=== PATIENT | female | born 1945 | race Caucasian/White ===

== ENCOUNTER 2016-08-11 22:38 | Inpatient (IN) | payer MEDICARE, MEDICAID ==
[~2016-08-11] VITALS: Ht 172.7 cm; Wt 56.3 kg
[~2016-08-11 22:38] MED LIST: ACET1CAP18 PO; ALBUAER3 INH; AMLO5TAB2 PO; ATEN100T PO; BENA25TA3 PO; BOOSLIQ PO; CELE20TA PO; COUM4TAB PO; COZA100T PO; DENO60P SQ; FLUT1SPR9 EACH NARE; HYDR-3111 PO; LIPI40TA PO
[2016-08-11 22:41] VITALS: BP 150/81; PULSE 64; RESP 20; TEMP 98.5; O2SAT 94
--- NOTE | 2016-08-11 22:50 | PD ---
HPI Chief Complaint: trauma transfer Time Seen by Provider: 22:42 Travel History International Travel<30 days: No Contact w/Intl Traveler<30days: No Traveled to known affect area: No History of Present Illness HPI 70-year-old female transferred to our facility and accepted by our trauma surgeon Dr. Brooke. Patient had a mechanical fall earlier today and she sustained a right clavicle fracture as well as. Right-sided rib fractures with small hydropneumothorax according to CT chest reading accompanied by the patient. Patient is on Coumadin for factor V Leiden deficiency and Jerardo are at the other facility was 1.9. Patient is complaining of right clavicle/shoulder pain. No dyspnea. PFSH Social History Tobacco Use: No Allergies-Medications (Allergen,Severity, Reaction): Coded Allergies: Penicillin (Verified Allergy, Intermediate, Hives, 08/11/16) Sulfa (Verified Allergy, Intermediate, Hives, 08/11/16) Reported Meds & Prescriptions Reported Meds & Active Scripts Active Celexa (Citalopram Hydrobromide) 20 Mg Tab 20 Mg PO DAILY Cozaar (Losartan Potassium) 100 Mg Tab 100 Mg PO DAILY Lipitor (Atorvastatin Calcium) 40 Mg Tab 40 Mg PO HS Atenolol 100 Mg Tab 100 Mg PO DAILY Amlodipine (Amlodipine Besylate) 5 Mg Tab 5 Mg PO DAILY Reported Prolia Inj (Denosumab) 60 Mg/Ml Inj 60 Mg SQ Q180D Benadryl Allergy (Diphenhydramine HCl) 25 Mg Tab 25 Mg PO PRN PRN Tylenol (Acetaminophen) 325 Mg Cap 325 Mg PO PRN PRN Flonase Allergy Relief Children Nasal [place] (Fluticasone Nasal [place]) 50 Mcg/ Act [place] 2 [place] EACH NARE DAILY 50 mcg/spray Coumadin (Warfarin) 4 Mg Tab 4 Mg PO DAILY Proair Hfa 8.5 GM Inh (Albuterol Sulfate) 90 Mcg/Act Aer 2 Puff INH Q6H PRN 108 mcg/actuation Boost High Protein (Nutritional Supplements) 1 Liq Liq 1 Can PO TID Vicodin (Hydrocodone-Acetaminophen) 5-300 Mg Tab 1 Tab PO Q6H PRN Review of Systems Except as stated in HPI: all other systems reviewed are Neg Physical Exam Narrative GENERAL: Well-developed, thin, elderly appearing female, awake, alert, no acute distress. SKIN: Focused skin assessment warm/dry. HEAD: Atraumatic. Normocephalic. EYES: Pupils equal and round. No scleral icterus. No injection or drainage. ENT: Mucous membranes pink and moist. NECK: Trachea midline. No JVD. CARDIOVASCULAR: Regular rate and rhythm. No murmur appreciated. RESPIRATORY: No accessory muscle use. Clear to auscultation. GASTROINTESTINAL: Abdomen soft, non-tender, nondistended. Hepatic and splenic margins not palpable. MUSCULOSKELETAL: Right clavicle was step-off and diffuse tenderness. Right arm in a sling. The respiratory joints and extremities are without deformity, without tenderness, with normal range of motion. There is right chest wall tenderness without crepitus, without step-off, without paradoxical chest wall movement. NEUROLOGICAL: Awake and alert. No obvious cranial nerve deficits. Motor grossly within normal limits. Normal speech. PSYCHIATRIC: Appropriate mood and affect; insight and judgment normal. Data Data Last Documented VS Vital Signs Date Time Temp Pulse Resp B/P Pulse Ox O2 Delivery O2 Flow Rate FiO2 08/11/16 22:41 98.5 64 20 150/81 94 Orders Morphine Inj (Morphine Inj) (08/11/16 23:00) Admit Order (Ed Use Only) (08/11/16 22:50) MDM Medical Decision Making Medical Screen Exam Complete: Yes Emergency Medical Condition: Yes Differential Diagnosis Rib fractures, hemopneumothorax, clavicle fracture Narrative Course Patient's O2 saturation is 91% on room air. She is in no respiratory distress. Rest of her vital signs are within normal limits. After the patient arrived to the emergency Department, case discussed with accepting trauma surgeon Dr. Brooke who will admit the patient to his service to the ICU. Diagnosis Primary Impression: Fall Qualified Code: W19.XXXD - Fall, subsequent encounter Additional Impressions: Rib fractures Qualified Code: S22.41XD - Closed fracture of multiple ribs of right side with routine healing, subsequent encounter Clavicle fracture Qualified Code: S42.001D - Closed nondisplaced fracture of right clavicle with routine healing, unspecified part of clavicle, subsequent encounter Hemopneumothorax Admitting Information Admitting Physician Requests: Admit Michael Bowman MD August 11, 2016 22:50
[2016-08-11] MEDS ORDERED: MORPHINE SULFATE 4 MG/ML INJ IV PUSH ONE (23:00)
[2016-08-11 23:54] VITALS: BP 149/84; PULSE 63; RESP 22; O2SAT 96
[2016-08-12] VITALS (12 sets, daily range): BP systolic 90–173; BP diastolic 50–92; PULSE 56–72; RESP 14–25; TEMP 96.6–98.3; O2SAT 93–97
[2016-08-12] MEDS ORDERED: diphenhydrAMINE HCL 50 MG/ML VIAL IV PUSH ONE
[2016-08-12] MEDS: MORPHINE SULFATE 4 MG/ML INJ IV PUSH PRN ×2 (03:13→04:21)
[2016-08-12] MEDS ORDERED: SODIUM CHLORIDE 0.9% FLUSH 10 ML FLUSH IV FLUSH PRN (04:30)
[2016-08-12] MEDS ORDERED: CHLORHEXIDINE GLUCONATE 2 % 1 PACK (2 CLOTHS) TOP PRN (04:30)
[2016-08-12] MEDS ORDERED: ONDANSETRON HCL 4 MG/2 ML VIAL IV PRN (04:30)
[2016-08-12] MEDS ORDERED: MISCELLANEOUS NURSING INFORMATION XX SCH (04:30)
[2016-08-12] MEDS ORDERED: HYDROmorphone HCL PF 1 MG/ML VIAL IV PUSH PRN (04:45)
[2016-08-12] MEDS ORDERED: IOHEXOL 350 MG/ML 10 ML VIAL (for RAD DIAG) IV ONE (04:57)
--- NOTE | 2016-08-12 04:58 | HHI.HP ---
History of Present Illness Primary Care Physician Anca Licea MD Admission Diagnosis fall, rib fractures, hemopneumothorax, clavicle fracture Diagnoses: History of Present Illness 70 y.o female transfer mechanical fall yesterday-transfer from with right clavicle fx,2 rib fx right,first rib fx left.At time of my exam,HD normal, moving all 4 extremities,c/o mid thoracic sharp pain-spo2 98 percent with 3l o2. Review of Systems Constitutional: DENIES: Diaphoretic episodes, Fatigue, Fever, Weight gain, Weight loss, Chills, Dizziness, Change in appetite, Night Sweats Endocrine: DENIES: Abnorml menstrual pattern, Heat/cold intolerance, Polydipsia , Polyuria, Polyphagia Eyes: DENIES: Blurred vision, Diplopia, Eye inflammation, Eye pain, Vision loss , Photosensitivity, Double Vision Ears, nose, mouth, throat: DENIES: Tinnitus, Hearing loss, Vertigo, Nasal discharge, Oral lesions, Throat pain, Hoarseness, Ear Pain, Running Nose, Epistaxis, Sinus Pain, Toothache, Odynophagia Respiratory: DENIES: Apneas, Cough, Snoring, Wheezing, Hemoptysis, Sputum production, Shortness of breath Cardiovascular: DENIES: Chest pain, Palpitations, Syncope, Dyspnea on Exertion , PND, Lower Extremity Edema, Orthopnea, Claudication Gastrointestinal: DENIES: Abdominal pain, Black stools, Bloody stools, Constipation, Diarrhea, Nausea, Vomiting, Difficulty Swallowing, Anorexia Genitourinary: DENIES: Abnormal vaginal bleeding, Dysmenorrhea, Dyspareunia, Sexual dysfunction, Urinary frequency, Urinary incontinence, Urgency, Hematuria , Dysuria, Nocturia, Vaginal discharge Musculoskeletal: DENIES: Joint pain, Muscle aches, Stiffness, Joint Swelling, Back pain, Neck pain Integumentary: DENIES: Abnormal pigmentation, Pruritus, Rash, Nail changes, Breast masses, Breast skin changes, Nipple discharge Hematologic/lymphatic: DENIES: Bruising, Lymphadenopathy Immunologic/allergic: DENIES: Eczema, Urticaria Neurologic: DENIES: Abnormal gait, Headache, Localized weakness, Paresthesias, Seizures, Speech Problems, Tremor, Poor Balance Psychiatric: DENIES: Anxiety, Confusion, Mood changes, Depression, Hallucinations, Agitation, Suicidal Ideation, Homicidal Ideation, Delusions Past Family Social History Allergies: Coded Allergies: Penicillin (Verified Allergy, Intermediate, Hives, 08/11/16) Sulfa (Verified Allergy, Intermediate, Hives, 08/11/16) Past Medical History factor 5 leiden Past Surgical History none Reported Medications Current Medications Medications (Trade) Dose Ordered Sig/Christofer Route Start Time Stop Time Status Last Admin Morphine Sulfate 2 mg 2 mg Q1H PRN IV PUSH 08/12/16 03:15 08/12/16 04:21 (NS 1000 ml Inj) 1,000 ml @ 42 mls/hr [id number] IV 08/12/16 04:29 (NS Flush) 2 ml UNSCH PRN IV FLUSH 08/12/16 04:30 (NS Flush) 2 ml BID IV FLUSH 08/12/16 09:00 (Zofran Inj) 4 mg Q6H PRN IV 08/12/16 04:30 (Lactulose Liq) 30 ml DAILY PO 08/12/16 09:00 Miscellaneous Information 1 Q361D XX 08/12/16 04:30 (Chlorhexidine 2% Cloth) 3 pack Taper DAILY@04 TOP 08/13/16 04:00 08/09/17 03:59 (Chlorhexidine 2% Cloth) 3 pack UNSCH PRN TOP 08/12/16 04:30 Family History none Social History living with family,no etoh Physical Exam Vital Signs Vital Signs Date Time Temp Pulse Resp B/P Pulse Ox O2 Delivery O2 Flow Rate FiO2 08/12/16 00:58 66 20 147/85 95 Nasal Cannula 3 08/11/16 23:54 63 22 149/84 96 Nasal Cannula 3 08/11/16 22:41 98.5 64 20 150/81 94 Physical Exam GENERAL: This is a well-nourished, well-developed patient, in no apparent distress. SKIN: No rashes, ecchymoses or lesions. Cool and dry. HEAD: Atraumatic. Normocephalic. No temporal or scalp tenderness. EYES: Pupils equal round and reactive. Extraocular motions intact. No scleral icterus. No injection or drainage. ENT: Nose without bleeding, purulent drainage or septal hematoma. Throat without erythema, tonsillar hypertrophy or exudate. Uvula midline. Airway patent. NECK: Trachea midline. No JVD or lymphadenopathy. Supple, nontender, no meningeal signs. CARDIOVASCULAR: Regular rate and rhythm without murmurs, gallops, or rubs. RESPIRATORY: Clear to auscultation. Breath sounds equal bilaterally. No wheezes , rales, or rhonchi. GASTROINTESTINAL: Abdomen soft, non-tender, nondistended. No hepato-splenomegaly , or palpable masses. No guarding. MUSCULOSKELETAL: Extremities without clubbing, cyanosis, or edema.right UE sling NEUROLOGICAL: Awake and alert. Cranial nerves II through XII intact. Motor and sensory grossly within normal limits. Five out of 5 muscle strength in all muscle groups. Normal speech. Assessment and Plan Assessment and Plan right clavicle fx left 1st rib fx right 5th 6 th rib fx ? luca will obtain CT chest, AP as patient had only CT TL spine admit to ICU IS,pulmonary toilet pain control ortho consult Lyssa Brooke MD August 12, 2016 04:58
--- NOTE | 2016-08-12 05:07 | RADRPT ---
EXAM DATE/TIME: 08/12/2016 04:53 [facility] COMPARISON: No previous studies available for comparison. INDICATIONS : Trauma, fall. IV CONTRAST: 100 cc Omnipaque 350 (iohexol) IV ; Cumulative dose for multiple exams. RADIATION DOSE: 3.43 CTDIvol (mGy) ; Combined studies - Thorax/Abdomen/Pelvis MEDICAL HISTORY : Non-responsive. SURGICAL HISTORY : Non-responsive. ENCOUNTER: Initial ACUITY: 1 day PAIN SCALE: Non-responsive LOCATION: chest TECHNIQUE: Volumetric scanning of the chest was performed. Using automated exposure control and adjustment of t he mA and/or kV according to patient size, radiation dose was kept as low as reasonably achievable to obtain optimal diagnostic quality images. FINDINGS: LUNGS: Small hydropneumothorax on the right. Left lung is clear, with exception of left basilar atelectasis. PLEURA: There is no pleural thickening or pleural effusion. MEDIASTINUM: The heart and great vessels demonstrate no acute abnormality. There is no mediastinal or hilar lymph adenopathy. Coronary artery calcifications. AXILLAE: Within normal limits. No lymphadenopathy. SKELETAL: Right-sided rib fractures including the right fifth and sixth ribs. MISCELLANEOUS: The visualized upper abdominal organs demonstrate no acute abnormality. CONCLUSION: 1. Small hydropneumothorax on the right. 2. Right fifth and sixth rib fractures. Malick Calhoun MD on August 12, 2016 at 5:03 Board Certified Radiologist. This report was verified electronically.
--- NOTE | 2016-08-12 05:11 | RADRPT ---
EXAM DATE/TIME: 08/12/2016 04:51 [facility] COMPARISON: No previous studies available for comparison. INDICATIONS : Trauma, fall. IV CONTRAST: 100 cc Omnipaque 350 (iohexol) IV ; Cumulative dose for multiple exams. ORAL CONTRAST: No oral contrast ingested. RADIATION DOSE: 3.43 CTDIvol (mGy) ; Combined studies - Thorax/Abdomen/Pelvis MEDICAL HISTORY : Non-responsive. SURGICAL HISTORY : Non-responsive. ENCOUNTER: Initial ACUITY: 1 day PAIN SCALE: Non-responsive LOCATION: abdomen TECHNIQUE: Volumetric scanning of the abdomen and pelvis was performed. Using automated exposure control and ad justment of the mA and/or kV according to patient size, radiation dose was kept as low as reasonably achievable to obtain optimal diagnostic quality images. FINDINGS: LOWER LUNGS: The visualized lower lungs are clear. LIVER: Homogeneous density without lesion. There is no dilation of the biliary tree. No calcified gallston es. SPLEEN: Normal size without lesion. PANCREAS: Within normal limits. KIDNEYS: Normal in size and shape. There is no mass or hydronephrosis. Nonobstructing 6 mm lower pole calculu s on the right. ADRENAL GLANDS: Within normal limits. VASCULAR: There is no aortic aneurysm. Atherosclerotic changes. BOWEL/MESENTERY: Diverticulosis without diverticulitis. There is no free intraperitoneal air or fluid. ABDOMINAL WALL: Within normal limits. RETROPERITONEUM: There is no lymphadenopathy. BLADDER: No wall thickening or mass. Residual contrast within the bladder. A Woodson catheter present. REPRODUCTIVE: Within normal limits. INGUINAL: There is no lymphadenopathy or hernia. MUSCULOSKELETAL: 3 screws traverse the right hip CONCLUSION: 1. No abdominal visceral injury. 2. Small hydropneumothorax on the right. 3. Diverticulosis without diverticulitis. Malick Calhoun MD on August 12, 2016 at 5:06 Board Certified Radiologist. This report was verified electronically.
[2016-08-12] MEDS: SODIUM CHLOR 0.9% 1000 ML INJ 1,000 ML IV SCH (05:45)
--- NOTE | 2016-08-12 07:50 | PD.CONS ---
cc: Lanie Romero fall, possible clavicle fracture, multiple rib fractures (Lanie Romero) HPI Service Orthopedic Surgeons Consult Requested By ER Staff Reason for Consult right clavicle / rib fractures Primary Care Physician Anca Licea MD Admission Diagnosis fall, rib fractures, hemopneumothorax, clavicle fracture Diagnoses: (1) Fall Diagnosis: Principal (2) Clavicle fracture Diagnosis: Principal (3) Rib fractures (4) Osteoporosis (5) Osteoarthritis, knee (6) Hemopneumothorax Chief Complaint: fall, right clavicle and rib fractures (Lanie Romero) History of Present Illness 70 year old female admits to falling out of bed late last night. She admits she does not remember the event and 'blacked out.' Patient initially presented to [facility] and was later transferred to [facility] for trauma care. Per notation and report from [facility] she sustained a right clavicle fracture with multiple rib fractures. Although CT of chest does not demonstrate a clavicle fracture. X-rays have not been taken at this time. Orthopedic consultation was requested for possible clavicle fracture. She admits to prior orthopedic problems including severe right knee osteoarthritis. She admits to ambulating with a cane at home. She lives at home with her family. No previous injury to her right upper extremity. No other musculoskeletal complaints at this time. (Lanie Romero) Review of Systems well outlined in medical record (Lanie Romero) Past Family Social History Past Medical History factor 5 Leiden, right knee OA Past Surgical History none reported (Lanie Romero) Allergies: Coded Allergies: Penicillin (Verified Allergy, Intermediate, Hives, 08/11/16) Sulfa (Verified Allergy, Intermediate, Hives, 08/11/16) Active Ordered Medications Current Medications Medications (Trade) Dose Ordered Sig/Christofer Route Start Time Stop Time Status Last Admin Morphine Sulfate 2 mg 2 mg Q1H PRN IV PUSH 08/12/16 03:15 08/12/16 04:21 (NS 1000 ml Inj) 1,000 ml @ 42 mls/hr [id number] IV 08/12/16 04:29 08/12/16 05:45 (NS Flush) 2 ml UNSCH PRN IV FLUSH 08/12/16 04:30 (NS Flush) 2 ml BID IV FLUSH 08/12/16 09:00 (Zofran Inj) 4 mg Q6H PRN IV 08/12/16 04:30 (Lactulose Liq) 30 ml DAILY PO 08/12/16 09:00 Miscellaneous Information 1 Q361D XX 08/12/16 04:30 (Chlorhexidine 2% Cloth) 3 pack Taper DAILY@04 TOP 08/13/16 04:00 08/09/17 03:59 (Chlorhexidine 2% Cloth) 3 pack UNSCH PRN TOP 08/12/16 04:30 (Dilaudid Pf Inj) 0.2 mg Q4H PRN IV PUSH 08/12/16 04:45 (Dilaudid Pf Inj) 0.5 mg Q4H PRN IV PUSH 08/12/16 04:45 (Lidoderm 5% Patch.12 Hr) 1 patch DAILY T-DERMAL 08/12/16 09:00 Miscellaneous Information 1 HS T-DERMAL 08/12/16 21:00 Reported Meds & Active Scripts Active Celexa (Citalopram Hydrobromide) 20 Mg Tab 20 Mg PO DAILY Cozaar (Losartan Potassium) 100 Mg Tab 100 Mg PO DAILY Lipitor (Atorvastatin Calcium) 40 Mg Tab 40 Mg PO HS Atenolol 100 Mg Tab 100 Mg PO DAILY Amlodipine (Amlodipine Besylate) 5 Mg Tab 5 Mg PO DAILY Reported Prolia Inj (Denosumab) 60 Mg/Ml Inj 60 Mg SQ Q180D Benadryl Allergy (Diphenhydramine HCl) 25 Mg Tab 25 Mg PO PRN PRN Tylenol (Acetaminophen) 325 Mg Cap 325 Mg PO PRN PRN Flonase Allergy Relief Children Nasal [place] (Fluticasone Nasal [place]) 50 Mcg/ Act [place] 2 [place] EACH NARE DAILY 50 mcg/spray Coumadin (Warfarin) 4 Mg Tab 4 Mg PO DAILY Proair Hfa 8.5 GM Inh (Albuterol Sulfate) 90 Mcg/Act Aer 2 Puff INH Q6H PRN 108 mcg/actuation Boost High Protein (Nutritional Supplements) 1 Liq Liq 1 Can PO TID Vicodin (Hydrocodone-Acetaminophen) 5-300 Mg Tab 1 Tab PO Q6H PRN Family History noncontributory Social History lives at home with family, no etoh or drug use (Lanie Romero) Physical Exam Vital Signs Vital Signs Date Time Temp Pulse Resp B/P Pulse Ox O2 Delivery O2 Flow Rate FiO2 08/12/16 06:00 72 08/12/16 04:00 70 08/12/16 02:00 64 08/12/16 01:30 96 Nasal Cannula 3.00 08/12/16 00:58 66 20 147/85 95 Nasal Cannula 3 08/11/16 23:54 63 22 149/84 96 Nasal Cannula 3 08/11/16 22:41 98.5 64 20 150/81 94 Physical Exam RUE: Tender to palpation over right mid-shaft clavicle and right olecranon. No specific pain over shoulder region. Freely able to flex and extend elbow without pain. Freely able to move wrist and digits. Good cap refill. 2+ radial pulse. Arm in sling at this time. No other musculoskeletal complaints at this time. (Lanie Romero ) Imaging Last Impressions Elbow X-Ray 08/12/16 0000 Signed Impressions: Service Date/Time: Friday, August 12, 2016 09:37 - CONCLUSION: Unremarkable limited examination of the right elbow. Leonides Vogt MD Clavicle X-Ray 08/12/16 0000 Signed Impressions: Service Date/Time: Friday, August 12, 2016 09:31 - CONCLUSION: Rib fractures and right clavicle fracture. High riding humeral head. Leonides Vogt MD Chest CT 08/11/16 0000 Signed Impressions: Service Date/Time: Friday, August 12, 2016 04:53 - CONCLUSION: 1. Small hydropneumothorax on the right. 2. Right fifth and sixth rib fractures. Malick Calhoun MD Abdomen/Pelvis CT 08/11/16 0000 Signed Impressions: Service Date/Time: Friday, August 12, 2016 04:51 - CONCLUSION: 1. No abdominal visceral injury. 2. Small hydropneumothorax on the right. 3. Diverticulosis without diverticulitis. Malick Calhoun MD Last Impressions Chest CT 08/11/16 0000 Signed Impressions: Service Date/Time: Friday, August 12, 2016 04:53 - CONCLUSION: 1. Small hydropneumothorax on the right. 2. Right fifth and sixth rib fractures. Malick Calhoun MD Abdomen/Pelvis CT 08/11/16 0000 Signed Impressions: Service Date/Time: Friday, August 12, 2016 04:51 - CONCLUSION: 1. No abdominal visceral injury. 2. Small hydropneumothorax on the right. 3. Diverticulosis without diverticulitis. Malick Calhoun MD Course well outlined in medical records (Lanie Romero) Assessment & Plan Problem List: (1) Fall (2) Clavicle fracture (3) Rib fractures (4) Factor V Leiden (5) Osteoporosis (6) Osteoarthritis, knee Assessment and Plan The findings were discussed with the patient. Dr Dylan Chavis has reviewed images and details of this case. Attempt was made to review [facility] CD with possible images - which was unsuccessful. Further radiographs have been ordered, including right clavicle and right elbow. Plan will be further addressed upon review of images. Rib fractures are non-surgical at this time. Continue IS use. Orthopedics will follow. Update: Further imaging was reviewed demonstrating a right closed mid-shaft mildly displaced clavicle fracture. No fractures or dislocations noted on right elbow upon review of images. Recommendations are given for non-operative management at this time. Non weight bearing right upper extremity. No physical therapy for right shoulder/clavicle at this time. Patient is to remain in sling for comfort. Continue pain control. Recommended orthopedic follow up in 7-10 days. Further displacement of the fracture site may require fixation. The possibility of future surgical treatment was discussed with the patient in detail, the patient acknowledges full understanding. Orthopedic clear for discharge at this time. Appreciate orthopedic involvement in patient's care. ( Lanie Romero) Assessment and Plan The exam, history and medical decision making were completed with the assistance of a mid-level provider. I reviewed and agree with the findings presented. (Dylan Chavis MD) Lanie Romero August 12, 2016 07:50 Dylan Chavis MD August 16, 2016 15:44
[2016-08-12] MEDS: LACTULOSE SYRUP 20 GM/30 ML CUP PO SCH (08:18)
[2016-08-12] MEDS: LIDOCAINE HCL 5% PATCH T-DERMAL SCH (08:18)
[2016-08-12] MEDS: SODIUM CHLORIDE 0.9% FLUSH 10 ML FLUSH IV FLUSH SCH ×2 (08:18→21:00)
[2016-08-12] MEDS: FAMOTIDINE 20 MG TAB PO SCH ×2 (09:13→20:38)
--- NOTE | 2016-08-12 10:40 | RADRPT ---
EXAM DATE/TIME: 08/12/2016 09:31 [facility] COMPARISON: No previous studies available for comparison. INDICATIONS : Trauma MEDICAL HISTORY : Unknown SURGICAL HISTORY : Unknown ENCOUNTER: Subsequent ACUITY: 1 day PAIN SCORE: Non-responsive. LOCATION: Right clavicle FINDINGS: There is a mildly angulated mildly displaced mid shaft right clavicle fracture. The humeral head is h igh riding without evidence of fracture or obvious dislocation. Adjacent chest wall is notable for se veral mildly displaced right rib fractures, I believe at least the fifth and sixth ribs. CONCLUSION: Rib fractures and right clavicle fracture. High riding humeral head. Leonides Vogt MD on August 12, 2016 at 10:36 Board Certified Radiologist. This report was verified electronically.
--- NOTE | 2016-08-12 11:06 | RADRPT ---
EXAM DATE/TIME: 08/12/2016 09:37 [facility] COMPARISON: No previous studies available for comparison. INDICATIONS : Trauma MEDICAL HISTORY : Unknown SURGICAL HISTORY : Unknown ENCOUNTER: Subsequent ACUITY: 1 day PAIN SCORE: Non-responsive. LOCATION: Right Elbow FINDINGS: Two view examination of the right elbow demonstrates no soft tissue swelling, joint effusion, fractur e or dislocation. Bony mineralization is normal. CONCLUSION: Unremarkable limited examination of the right elbow. Leonides Vogt MD on August 12, 2016 at 11:03 Board Certified Radiologist. This report was verified electronically.
[2016-08-12] MEDS: HYDROmorphone HCL PF 1 MG/ML VIAL IV PUSH PRN ×2 (11:34→20:39)
[2016-08-12] MEDS ORDERED: ALBUTEROL SULFATE 90 MCG/ACT HFA 18 GM INHALER INH PRN (12:00)
[2016-08-12] MEDS: CITALOPRAM HYDROBROMIDE 20 MG TAB PO SCH (12:21)
[2016-08-12] MEDS: amLODIPine BESYLATE 5 MG TAB PO SCH (12:21)
[2016-08-12] MEDS: ACETAMINOPHEN 1000 MG/100 ML VIAL IV SCH ×2 (12:21→17:15)
[2016-08-12] MEDS: LOSARTAN 50 MG TAB PO SCH (12:21)
[2016-08-12] MEDS: ATENOLOL 100 MG TAB PO SCH (12:39)
--- NOTE | 2016-08-12 13:24 | HHI.CCPN ---
Subjective Brief History Unfortunate 70-year-old lady who sustained the right clavicle and right 5, 6 and 7 rib fracture and chest contusion with pulmonary contusion Patient was transferred to us from [facility] in for further care Patient is stable with good oxygen saturation and will be transferred to floor today Objective Vital Signs Date Time Temp Pulse Resp B/P Pulse Ox O2 Delivery O2 Flow Rate FiO2 08/12/16 12:09 14 08/12/16 12:01 98.3 70 173/92 94 08/12/16 10:04 Nasal Cannula 1.00 Imaging Last 24 hours Impressions Elbow X-Ray 08/12/16 0000 Signed Impressions: Service Date/Time: Friday, August 12, 2016 09:37 - CONCLUSION: Unremarkable limited examination of the right elbow. Leonides Vogt MD Clavicle X-Ray 08/12/16 0000 Signed Impressions: Service Date/Time: Friday, August 12, 2016 09:31 - CONCLUSION: Rib fractures and right clavicle fracture. High riding humeral head. MD Camila Ellington Slobodan MD August 12, 2016 13:24
[2016-08-12] MEDS: oxyCODONE/ACETAMINOPHEN 5 MG/325 MG TAB PO PRN ×2 (13:56→17:35)
[2016-08-12] MEDS: METHOCARBAMOL 500 MG TAB PO SCH ×2 (13:56→20:38)
[2016-08-12] MEDS: ATORVASTATIN 40 MG TAB PO SCH (20:38)
[2016-08-12] MEDS: REMOVE OLD PATCH T-DERMAL SCH (21:00)
[2016-08-13] VITALS (8 sets, daily range): BP systolic 92–134; BP diastolic 55–68; PULSE 51–68; RESP 17–20; TEMP 95.6–98.9; O2SAT 92–97
[2016-08-13] MEDS: ACETAMINOPHEN 1000 MG/100 ML VIAL IV SCH ×2 (00:43→05:32)
[2016-08-13] MEDS ORDERED: CHLORHEXIDINE GLUCONATE 2 % 1 PACK (2 CLOTHS) TOP SCH (04:00)
[2016-08-13] MEDS: oxyCODONE/ACETAMINOPHEN 5 MG/325 MG TAB PO PRN ×3 (04:16→21:56)
[2016-08-13] MEDS: SODIUM CHLOR 0.9% 1000 ML INJ 1,000 ML IV SCH ×2 (04:18→17:21)
[2016-08-13] MEDS: METHOCARBAMOL 500 MG TAB PO SCH ×3 (05:31→21:55)
[2016-08-13] MEDS: CITALOPRAM HYDROBROMIDE 20 MG TAB PO SCH (08:33)
[2016-08-13] MEDS: LOSARTAN 50 MG TAB PO SCH (08:33)
[2016-08-13] MEDS: FAMOTIDINE 20 MG TAB PO SCH ×2 (08:33→20:10)
[2016-08-13] MEDS: amLODIPine BESYLATE 5 MG TAB PO SCH (08:33)
[2016-08-13] MEDS: LACTULOSE SYRUP 20 GM/30 ML CUP PO SCH (08:33)
[2016-08-13] MEDS: ATENOLOL 100 MG TAB PO SCH (08:33)
[2016-08-13] MEDS: LIDOCAINE HCL 5% PATCH T-DERMAL SCH (08:34)
[2016-08-13] MEDS: SODIUM CHLORIDE 0.9% FLUSH 10 ML FLUSH IV FLUSH SCH ×2 (08:34→20:10)
--- NOTE | 2016-08-13 08:39 | RADRPT ---
EXAM DATE/TIME: 08/13/2016 07:56 [facility] COMPARISON: CT THORAX W CONTRAST, August 12, 2016, 4:53. INDICATIONS : Chest pain from trauma to chest yesterday. Small hydropneumothorax on right seen on CT as well as mul tiple right rib fractures. MEDICAL HISTORY : None. SURGICAL HISTORY : None. ENCOUNTER: Subsequent ACUITY: 1 day PAIN SCORE: 10/10 LOCATION: Bilateral chest FINDINGS: A single view of the chest demonstrates the lungs to be symmetrically aerated without evidence of mas s or consolidative infiltrate. There is slight blunting of the left lateral costophrenic angle. There is mild streaky opacity at the lung bases. The cardiomediastinal contours are unremarkable. Fracture s of the right fifth and sixth posterior lateral ribs are again noted. The small pneumothorax is not definitely visualized. There is overlying artifact an apparent skinfold. CONCLUSION: 1. Fractures of the right posterior lateral fifth and sixth ribs are again visualized. The known smal l pneumothorax seen on the thorac CT is not distinctly visualized. 2. Apparent scarring or atelectasis in the lung bases. Demetrio Andersen MD on August 13, 2016 at 8:35 Board Certified Radiologist. This report was verified electronically.
[2016-08-13] MEDS ORDERED: diphenhydrAMINE HCL 50 MG CAP PO PRN (09:45)
--- NOTE | 2016-08-13 10:00 | HHI.PR ---
Subjective Subjective Notes Refused labs this AM, agreeable now Complains of right knee and rib pain States she is constipated Objective Vitals/I&O Vital Signs Date Time Temp Pulse Resp B/P Pulse Ox O2 Delivery O2 Flow Rate FiO2 08/13/16 08:28 Nasal Cannula 2.00 08/13/16 08:00 95.6 51 17 92/59 96 Radiology Last Impressions Chest X-Ray 08/13/16 0000 Signed Impressions: Service Date/Time: Saturday, August 13, 2016 07:56 - CONCLUSION: 1. Fractures of the right posterior lateral fifth and sixth ribs are again visualized. The known small pneumothorax seen on the thorac CT is not distinctly visualized. 2. Apparent scarring or atelectasis in the lung bases. Demetrio Andersen MD Elbow X-Ray 08/12/16 0000 Signed Impressions: Service Date/Time: Friday, August 12, 2016 09:37 - CONCLUSION: Unremarkable limited examination of the right elbow. Leonides Vogt MD Clavicle X-Ray 08/12/16 0000 Signed Impressions: Service Date/Time: Friday, August 12, 2016 09:31 - CONCLUSION: Rib fractures and right clavicle fracture. High riding humeral head. Leonides Vogt MD Chest CT 08/11/16 0000 Signed Impressions: Service Date/Time: Friday, August 12, 2016 04:53 - CONCLUSION: 1. Small hydropneumothorax on the right. 2. Right fifth and sixth rib fractures. Malick Calhoun MD Abdomen/Pelvis CT 08/11/16 0000 Signed Impressions: Service Date/Time: Friday, August 12, 2016 04:51 - CONCLUSION: 1. No abdominal visceral injury. 2. Small hydropneumothorax on the right. 3. Diverticulosis without diverticulitis. Malick Calhoun MD Narrative Exam GENERAL: 70 year old elderly female lying in bed splinting chest with pillow. SKIN: Warm and dry. HEAD: Atraumatic. Normocephalic. ENT: No nasal bleeding or discharge. Mucous membranes pink and moist. NECK: Trachea midline. No JVD. CARDIOVASCULAR: Regular rate and rhythm. RESPIRATORY: No accessory muscle use. Lungs clear to auscultation. Breath sounds equal bilaterally. GASTROINTESTINAL: Abdomen soft, non-tender, nondistended. + BS. MUSCULOSKELETAL: Extremities without cyanosis, or edema. No obvious deformities. NEUROLOGICAL: Awake and alert. Normal speech. A/P Assessment and Plan INJURIES: Right clavicle fracture Right rib fractures (5,6) Small hemopneumothorax Aspiration PMHx: severe osteoarthritis right knee Diet: Regular, decreased appetite Pulmonary: IS, acapella. Encouraged patient use Pain: Percocet, Robaxin, IV Ofirmev, Lidoderm patch, Dilaudid IV. Tylenol. Activity: OOB, PT, OT evaluating- recommending rehab. (NWB RUE) IVF increased to NS @ 100 d/t hypotension. Home BP meds on hold. GI: Pepcid Bowel: Lactulose, Georgiana-colace. No BM yet. Dulcolax MI x1 today DVT: SCDs Discontinue Woodson catheter Awaiting lab results for today. -Right clavicle fracture sling- NWB RUE X-ray + for fx Ortho following -Right rib fractures, Small hemopneumothorax, Aspiration Pulmonary toileting: IS, acapella CXR today- No PTX, atelectasis in bilateral bases Pain control TCDB Increase activity Case management consulted to assist with discharge planning. Patient will likely need rehab vs SNF placement. Plan of care discussed with patient and ex- at bedside. The exam, history, and the medical decision-making described in the above note were completed with the assistance of the mid-level provider. I reviewed and agree with the findings presented. I attest that I had a [id number] encounter with the patient on the same day, and personally performed and documented my assessment and findings in the medical record. Vicky Bowie August 13, 2016 10:00 Cornelio Lind MD August 13, 2016 17:17
[2016-08-13] MEDS: diphenhydrAMINE HCL 25 MG CAP PO PRN ×2 (10:14→21:55)
[2016-08-13] MEDS ORDERED: ACETAMINOPHEN 325 MG TAB PO PRN (12:00)
[2016-08-13] MEDS ORDERED: BISACODYL 10 MG SUPP RECTAL ONE (12:30)
[2016-08-13 14:36] LABS: AUTOMATED NEUTROPHIL # 6.3 TH/MM3 (1.8-7.7); BASOPHIL % 0.3 % (0.0-2.0); EOSINOPHIL # 0.1 TH/MM3 (0-0.4); EOSINOPHIL % 1.4 % (0.0-4.0); HEMATOCRIT 34.7 % (35.0-46.0); HEMO FLAGS DIFF FINAL; LYMPH % 19.7 % (9.0-44.0); LYMPHOCYTE # 1.7 TH/MM3 (1.0-4.8); MEAN CELL VOLUME 86.9 FL (80.0-100.0); MEAN CORPUSCULAR HEMOGLOBIN 30.3 PG (27.0-34.0); MEAN CORPUSCULAR HGB CONC 34.9 % (32.0-36.0); MONO % 6.8 % (0.0-8.0); NEUT % 71.8 % (16.0-70.0); PLATELET COUNT 134 TH/MM3 (150-450); RED BLOOD COUNT 3.99 MIL/MM3 (4.00-5.30); RED CELL DISTRIBUTION WIDTH 16.1 % (11.6-17.2); WHITE BLOOD COUNT 8.8 TH/MM3 (4.0-11.0)
[2016-08-13 14:43] LABS: INTERNATIONAL NORMALIZED RATIO 1.7 RATIO
[2016-08-13 14:54] LABS: ALT (GPT) 18 U/L (10-53); ANION GAP 9 MEQ/L (5-15); AST (GOT) 19 U/L (15-37); BICARBONATE 26.4 MEQ/L (21.0-32.0); BLOOD UREA NITROGEN 17 MG/DL (7-18); CHLORIDE 105 MEQ/L (98-107); GLOMERULAR FILTRATION RATE 49 ML/MIN (>89); MAGNESIUM 1.8 MG/DL (1.5-2.5); POTASSIUM 3.2 MEQ/L (3.5-5.1); SODIUM (NA) 140 MEQ/L (136-145)
[2016-08-13 14:56] LABS: ALKALINE PHOSPHATASE 60 U/L (45-117); TOTAL BILIRUBIN ADULT 0.9 MG/DL (0.2-1.0)
[2016-08-13] MEDS: ATORVASTATIN 40 MG TAB PO SCH (20:10)
[2016-08-13] MEDS: DOCUSATE SODIUM 50 MG/SENNA 8.6 MG TAB PO SCH (20:10)
[2016-08-13] MEDS: REMOVE OLD PATCH T-DERMAL SCH (20:12)
[2016-08-14] VITALS (7 sets, daily range): BP systolic 116–169; BP diastolic 57–80; PULSE 6–75; RESP 16–20; TEMP 96.7–98.2; O2SAT 92–100
[2016-08-14] MEDS: METHOCARBAMOL 500 MG TAB PO SCH ×3 (04:51→22:45)
[2016-08-14] MEDS: oxyCODONE/ACETAMINOPHEN 5 MG/325 MG TAB PO PRN ×3 (04:51→15:53)
[2016-08-14 05:28] LABS: AUTOMATED NEUTROPHIL # 5.3 TH/MM3 (1.8-7.7); BASOPHIL % 0.2 % (0.0-2.0); EOSINOPHIL # 0.1 TH/MM3 (0-0.4); EOSINOPHIL % 1.3 % (0.0-4.0); HEMATOCRIT 40.7 % (35.0-46.0); HEMO FLAGS DIFF FINAL; LYMPH % 17.2 % (9.0-44.0); LYMPHOCYTE # 1.2 TH/MM3 (1.0-4.8); MEAN CELL VOLUME 86.3 FL (80.0-100.0); MEAN CORPUSCULAR HEMOGLOBIN 29.3 PG (27.0-34.0); MEAN CORPUSCULAR HGB CONC 33.9 % (32.0-36.0); MONO % 7.3 % (0.0-8.0); PLATELET COUNT 141 TH/MM3 (150-450); RED BLOOD COUNT 4.72 MIL/MM3 (4.00-5.30); RED CELL DISTRIBUTION WIDTH 15.6 % (11.6-17.2); WHITE BLOOD COUNT 7.2 TH/MM3 (4.0-11.0)
[2016-08-14 05:35] LABS: ALT (GPT) 19 U/L (10-53); ANION GAP 6 MEQ/L (5-15); AST (GOT) 19 U/L (15-37); BICARBONATE 29.2 MEQ/L (21.0-32.0); BLOOD UREA NITROGEN 9 MG/DL (7-18); CHLORIDE 108 MEQ/L (98-107); GLOMERULAR FILTRATION RATE 82 ML/MIN (>89); POTASSIUM 3.4 MEQ/L (3.5-5.1); SODIUM (NA) 143 MEQ/L (136-145)
[2016-08-14 05:38] LABS: ALKALINE PHOSPHATASE 66 U/L (45-117); TOTAL BILIRUBIN ADULT 1.2 MG/DL (0.2-1.0)
[2016-08-14] MEDS ORDERED: POTASSIUM CHLORIDE 25 MEQ EFFERVESCENT TAB PO ONE (07:15)
[2016-08-14] MEDS: amLODIPine BESYLATE 5 MG TAB PO SCH (09:00)
[2016-08-14] MEDS: FAMOTIDINE 20 MG TAB PO SCH ×2 (09:00→20:35)
[2016-08-14] MEDS: CITALOPRAM HYDROBROMIDE 20 MG TAB PO SCH (09:00)
[2016-08-14] MEDS: SODIUM CHLORIDE 0.9% FLUSH 10 ML FLUSH IV FLUSH SCH ×2 (09:00→19:53)
[2016-08-14] MEDS: LACTULOSE SYRUP 20 GM/30 ML CUP PO SCH (09:00)
[2016-08-14] MEDS: DOCUSATE SODIUM 50 MG/SENNA 8.6 MG TAB PO SCH ×2 (09:00→20:35)
[2016-08-14] MEDS: LIDOCAINE HCL 5% PATCH T-DERMAL SCH (09:01)
--- NOTE | 2016-08-14 12:14 | HHI.PR ---
Subjective Subjective Notes OOB with PT yesterday BP better today Complains of rib pain Objective Vitals/I&O Vital Signs Date Time Temp Pulse Resp B/P Pulse Ox O2 Delivery O2 Flow Rate FiO2 08/14/16 09:00 Nasal Cannula 3.00 08/14/16 08:00 97.2 59 18 128/66 96 Labs Laboratory Tests Test 08/13/16 08/14/16 14:07 04:44 White Blood Count 8.8 7.2 Red Blood Count 3.99 4.72 Hemoglobin 12.1 13.8 Hematocrit 34.7 40.7 Mean Corpuscular Volume 86.9 86.3 Mean Corpuscular Hemoglobin 30.3 29.3 Mean Corpuscular Hemoglobin 34.9 33.9 Concent Red Cell Distribution Width 16.1 15.6 Platelet Count 134 141 Mean Platelet Volume 8.7 8.7 Neutrophils (%) (Auto) 71.8 74.0 Lymphocytes (%) (Auto) 19.7 17.2 Monocytes (%) (Auto) 6.8 7.3 Eosinophils (%) (Auto) 1.4 1.3 Basophils (%) (Auto) 0.3 0.2 Neutrophils # (Auto) 6.3 5.3 Lymphocytes # (Auto) 1.7 1.2 Monocytes # (Auto) 0.6 0.5 Eosinophils # (Auto) 0.1 0.1 Basophils # (Auto) 0.0 0.0 CBC Comment DIFF FINAL DIFF FINAL Differential Comment Prothrombin Time 19.0 Prothromb Time International 1.7 Ratio Sodium Level 140 143 Potassium Level 3.2 3.4 Chloride Level 105 108 Carbon Dioxide Level 26.4 29.2 Anion Gap 9 6 Blood Urea Nitrogen 17 9 Creatinine 1.09 0.70 Estimat Glomerular Filtration 49 82 Rate Random Glucose 84 101 Calcium Level 7.9 8.7 Magnesium Level 1.8 Total Bilirubin 0.9 1.2 Aspartate Amino Transf 19 19 (AST/SGOT) Alanine Aminotransferase 18 19 (ALT/SGPT) Alkaline Phosphatase 60 66 Total Protein 5.6 6.4 Albumin 3.2 3.4 Radiology Last Impressions Chest X-Ray 08/13/16 0000 Signed Impressions: Service Date/Time: Saturday, August 13, 2016 07:56 - CONCLUSION: 1. Fractures of the right posterior lateral fifth and sixth ribs are again visualized. The known small pneumothorax seen on the thorac CT is not distinctly visualized. 2. Apparent scarring or atelectasis in the lung bases. Demetrio Andersen MD Elbow X-Ray 08/12/16 0000 Signed Impressions: Service Date/Time: Friday, August 12, 2016 09:37 - CONCLUSION: Unremarkable limited examination of the right elbow. Leonides Vogt MD Clavicle X-Ray 08/12/16 0000 Signed Impressions: Service Date/Time: Friday, August 12, 2016 09:31 - CONCLUSION: Rib fractures and right clavicle fracture. High riding humeral head. Leonides Vogt MD Chest CT 08/11/16 0000 Signed Impressions: Service Date/Time: Friday, August 12, 2016 04:53 - CONCLUSION: 1. Small hydropneumothorax on the right. 2. Right fifth and sixth rib fractures. Malick Calhoun MD Abdomen/Pelvis CT 08/11/16 0000 Signed Impressions: Service Date/Time: Friday, August 12, 2016 04:51 - CONCLUSION: 1. No abdominal visceral injury. 2. Small hydropneumothorax on the right. 3. Diverticulosis without diverticulitis. Malick Calhoun MD Narrative Exam GENERAL: 70 year old elderly female lying in bed splinting chest with pillow. SKIN: Warm and dry. HEAD: Atraumatic. Normocephalic. ENT: No nasal bleeding or discharge. Mucous membranes pink and moist. NECK: Trachea midline. No JVD. CARDIOVASCULAR: Regular rate and rhythm. RESPIRATORY: No accessory muscle use. Lungs clear and diminished to auscultation. Breath sounds equal bilaterally. GASTROINTESTINAL: Abdomen soft, non-tender, nondistended. + BS. MUSCULOSKELETAL: Extremities without cyanosis, or edema. No obvious deformities. NEUROLOGICAL: Awake and alert. Normal speech. A/P Assessment and Plan INJURIES: Right clavicle fracture Right rib fractures (5,6) Small hemopneumothorax Aspiration PMHx: severe osteoarthritis right knee Diet: Regular, decreased appetite added Enlive supplements Pulmonary: IS, acapella. Encouraged patient use Pain: Percocet, Robaxin, Lidoderm patch, Dilaudid IV. Tylenol. Activity: OOB, PT, OT evaluating- recommending rehab. (NWB RUE) GI: Pepcid Bowel: Lactulose, Georgiana-colace. LBM 08/14 DVT: SCDs. Started on Lovenox 1 mg/kg SQ BID. Home Coumadin dose to start tomorrow. -Hypotension Resolved DC IVF Continue to monitor to resume home BP meds -Right clavicle fracture sling- NWB RUE Non-operative management Ortho cleared for discharge, F/U in 7-10 days -Right rib fractures, Small hemopneumothorax, Aspiration Pulmonary toileting: IS, acapella Pain control TCDB Increase activity Case management consulted to assist with discharge planning. Patient agreeable to rehab. Plan for discharge to SNF in 1-2 days. Plan of care discussed with patient and RN at bedside. Vicky Bowie August 14, 2016 12:14
[2016-08-14] MEDS: ENOXAPARIN SODIUM 60 MG/0.6 ML SYRINGE SQ SCH (12:56)
[2016-08-14] MEDS: HYDROmorphone HCL PF 1 MG/ML VIAL IV PUSH PRN (19:48)
[2016-08-14] MEDS: ATORVASTATIN 40 MG TAB PO SCH (20:35)
[2016-08-14] MEDS: REMOVE OLD PATCH T-DERMAL SCH (20:39)
[2016-08-15 00:10] VITALS: BP 151/78; PULSE 73; RESP 17; TEMP 99.5; O2SAT 94
[2016-08-15] MEDS: ENOXAPARIN SODIUM 60 MG/0.6 ML SYRINGE SQ SCH ×2 (01:43→13:22)
[2016-08-15] MEDS: oxyCODONE/ACETAMINOPHEN 5 MG/325 MG TAB PO PRN ×3 (01:43→20:31)
[2016-08-15 04:15] VITALS: BP 117/65; PULSE 64; RESP 17; TEMP 96.9; O2SAT 94
[2016-08-15] MEDS: METHOCARBAMOL 500 MG TAB PO SCH ×3 (05:35→21:15)
[2016-08-15 05:51] LABS: AUTOMATED NEUTROPHIL # 5.3 TH/MM3 (1.8-7.7); BASOPHIL % 0.4 % (0.0-2.0); EOSINOPHIL # 0.1 TH/MM3 (0-0.4); EOSINOPHIL % 1.7 % (0.0-4.0); HEMATOCRIT 35.7 % (35.0-46.0); HEMO FLAGS DIFF FINAL; LYMPH % 25.2 % (9.0-44.0); LYMPHOCYTE # 2.1 TH/MM3 (1.0-4.8); MEAN CELL VOLUME 87.6 FL (80.0-100.0); MEAN CORPUSCULAR HEMOGLOBIN 29.7 PG (27.0-34.0); MONO % 8.5 % (0.0-8.0); NEUT % 64.2 % (16.0-70.0); PLATELET COUNT 158 TH/MM3 (150-450); RED BLOOD COUNT 4.08 MIL/MM3 (4.00-5.30); RED CELL DISTRIBUTION WIDTH 15.5 % (11.6-17.2); WHITE BLOOD COUNT 8.3 TH/MM3 (4.0-11.0)
--- NOTE | 2016-08-15 06:12 | RADRPT ---
EXAM DATE/TIME: 08/15/2016 05:09 [facility] COMPARISON: CHEST SINGLE AP, August 13, 2016, 7:56. INDICATIONS : Chest pain, evaluate for pneumothorax and rib fractures MEDICAL HISTORY : None. SURGICAL HISTORY : None. ENCOUNTER: Subsequent ACUITY: 2 days PAIN SCORE: 8/10 LOCATION: Bilateral chest FINDINGS: Again seen are right sided rib fractures and right clavicular fracture. No pneumothorax. Linear scarr ing within the bases bilaterally. This is stable. No effusions. Heart is normal in size. CONCLUSION: 1. Right-sided rib fractures and right clavicular fracture. 2. No pneumothorax. 3. Bibasilar scarring. Natanael Garcia Jr., MD on August 15, 2016 at 6:09 Board Certified Radiologist. This report was verified electronically.
[2016-08-15 06:20] LABS: ALKALINE PHOSPHATASE 67 U/L (45-117); ALT (GPT) 19 U/L (10-53); ANION GAP 7 MEQ/L (5-15); AST (GOT) 20 U/L (15-37); BLOOD UREA NITROGEN 14 MG/DL (7-18); CHLORIDE 105 MEQ/L (98-107); GLOMERULAR FILTRATION RATE 70 ML/MIN (>89); MAGNESIUM 1.9 MG/DL (1.5-2.5); POTASSIUM 4.4 MEQ/L (3.5-5.1); SODIUM (NA) 142 MEQ/L (136-145); TOTAL BILIRUBIN ADULT 1.3 MG/DL (0.2-1.0)
[2016-08-15 07:36] VITALS: BP 124/68; PULSE 64; RESP 17; TEMP 97.9; O2SAT 93
[2016-08-15] MEDS: DOCUSATE SODIUM 50 MG/SENNA 8.6 MG TAB PO SCH ×2 (09:46→20:26)
[2016-08-15] MEDS: amLODIPine BESYLATE 5 MG TAB PO SCH (09:46)
[2016-08-15] MEDS: CITALOPRAM HYDROBROMIDE 20 MG TAB PO SCH (09:47)
[2016-08-15] MEDS: FAMOTIDINE 20 MG TAB PO SCH ×2 (09:47→20:26)
[2016-08-15] MEDS: LIDOCAINE HCL 5% PATCH T-DERMAL SCH (09:49)
[2016-08-15] MEDS: LACTULOSE SYRUP 20 GM/30 ML CUP PO SCH (09:49)
[2016-08-15] MEDS: SODIUM CHLORIDE 0.9% FLUSH 10 ML FLUSH IV FLUSH SCH ×2 (09:51→20:28)
[2016-08-15] MEDS ORDERED: OXYC1TAB63 PO (11:07)
[2016-08-15 11:26] VITALS: BP 125/74; PULSE 63; RESP 17; TEMP 98.7; O2SAT 92
[2016-08-15] MEDS ORDERED: SENN1TAB PO (11:26)
--- NOTE | 2016-08-15 11:40 | HHI.PR ---
Subjective Subjective Notes PTD: 4 Patient sitting up in bed. No complaints offered at this time. Objective Vitals/I&O Vital Signs Date Time Temp Pulse Resp B/P Pulse Ox O2 Delivery O2 Flow Rate FiO2 08/15/16 11:26 98.7 63 17 125/74 92 08/14/16 09:00 Nasal Cannula 3.00 Labs Laboratory Tests Test 08/15/16 05:29 White Blood Count 8.3 Red Blood Count 4.08 Hemoglobin 12.1 Hematocrit 35.7 Mean Corpuscular Volume 87.6 Mean Corpuscular Hemoglobin 29.7 Mean Corpuscular Hemoglobin 34.0 Concent Red Cell Distribution Width 15.5 Platelet Count 158 Mean Platelet Volume 8.5 Neutrophils (%) (Auto) 64.2 Lymphocytes (%) (Auto) 25.2 Monocytes (%) (Auto) 8.5 Eosinophils (%) (Auto) 1.7 Basophils (%) (Auto) 0.4 Neutrophils # (Auto) 5.3 Lymphocytes # (Auto) 2.1 Monocytes # (Auto) 0.7 Eosinophils # (Auto) 0.1 Basophils # (Auto) 0.0 CBC Comment DIFF FINAL Differential Comment Sodium Level 142 Potassium Level 4.4 Chloride Level 105 Carbon Dioxide Level 30.0 Anion Gap 7 Blood Urea Nitrogen 14 Creatinine 0.81 Estimat Glomerular Filtration 70 Rate Random Glucose 107 Calcium Level 9.1 Magnesium Level 1.9 Total Bilirubin 1.3 Aspartate Amino Transf 20 (AST/SGOT) Alanine Aminotransferase 19 (ALT/SGPT) Alkaline Phosphatase 67 Total Protein 6.1 Albumin 3.3 Radiology Last Impressions Chest X-Ray 08/13/16 0000 Signed Impressions: Service Date/Time: Saturday, August 13, 2016 07:56 - CONCLUSION: 1. Fractures of the right posterior lateral fifth and sixth ribs are again visualized. The known small pneumothorax seen on the thorac CT is not distinctly visualized. 2. Apparent scarring or atelectasis in the lung bases. Demetrio Andersen MD Elbow X-Ray 08/12/16 0000 Signed Impressions: Service Date/Time: Friday, August 12, 2016 09:37 - CONCLUSION: Unremarkable limited examination of the right elbow. Leonides Vogt MD Clavicle X-Ray 08/12/16 0000 Signed Impressions: Service Date/Time: Friday, August 12, 2016 09:31 - CONCLUSION: Rib fractures and right clavicle fracture. High riding humeral head. Leonides Vogt MD Chest CT 08/11/16 0000 Signed Impressions: Service Date/Time: Friday, August 12, 2016 04:53 - CONCLUSION: 1. Small hydropneumothorax on the right. 2. Right fifth and sixth rib fractures. Malick Calhoun MD Abdomen/Pelvis CT 08/11/16 0000 Signed Impressions: Service Date/Time: Friday, August 12, 2016 04:51 - CONCLUSION: 1. No abdominal visceral injury. 2. Small hydropneumothorax on the right. 3. Diverticulosis without diverticulitis. Malick Calhoun MD Narrative Exam GENERAL: This is a 70-year-old female sitting up in bed. No acute distress. Pleasant and cooperative. SKIN: Warm and dry. HEAD: Atraumatic. Normocephalic. EYES: PERRLA ENT: No nasal bleeding or discharge. Mucous membranes pink and moist. NECK: Trachea midline. No JVD. CARDIOVASCULAR: Regular rate and rhythm. RESPIRATORY: No accessory muscle use. Lungs are clear to auscultation. Breath sounds equal bilaterally. No distress or dyspnea. GASTROINTESTINAL: BS + x 4 quads. Abdomen soft, non-tender, nondistended. MUSCULOSKELETAL: Extremities without cyanosis, or edema. Right arm in sling. + peripheral pulses x 4 extremities. Warm with good capillary refill and sensation. MAEW. NEUROLOGICAL: Awake and alert. Normal speech and pattern. A/P Problem List: (1) Hemopneumothorax (2) Rib fractures (3) Fall (4) Clavicle fracture (5) Anticoagulated on Coumadin (6) Factor V Leiden Assessment and Plan ZUNI: This is a 70-year-old female who fell out of bed. She was transferred from [facility]. She is on Coumadin for factor V deficiency. PMHx: severe osteoarthritis right knee. Factor V deficiency INJURIES: Right clavicle fracture (non-op) RIGHT rib fractures (5,6) LEFT rib fx (1) Small hemopneumothorax Aspiration Consults: Orthopedics. Diet: Regular diet. Tolerating po diet. Encourage good po intake with each meal. Pulmonary: Encourage good pulmonary toileting. IS at bedside and pt encouraged to use. Rationale for use explained to patient, and verbalized understanding. PAIN Management: Percocet po. Robaxin po. Lidoderm patch Dilaudid IV for breakthrough pain Activity: OOB. PT and OT ordered. (NWB RUE) GI prophylaxis: Pepcid po Bowel regimen: Georgiana-colace and MOM. LBM: 08/14. DVT prophylaxis: Mechanical VTE with SCDs. Chemical management with Lovenox 50 BID and Coumadin resumed at 4 mg daily. DC Planning: Case management consulted for assistance with final discharge disposition. Plan for DC to SNF once choice is made and accepted. Emotional support provided to patient and family at bedside and plan of care discussed. (Dr. Richter called daughter, Liliam, and updated her on patients condition and plan of care.) Discussed with RN at bedside. Patient is hemodynamically stable and being managed on the med/surg floor. - Right clavicle fracture Non-operative management sling SHYLA ROBERTS Ortho cleared for discharge F/U in 7-10 days - Right rib fractures - Small hemopneumothorax -Aspiration Pulmonary toileting: IS, acapella Pain control - Percocet, Robaxin, Lidoderm patch CDB Increase activity Chest x-ray - Hemopneumothorax resolved - Factor V deficiency Lovenox 50 mg BID Coumadin 4 mg po daily PT/INR in a.m. (Once INR 1.8 - then can DC Lovenox) Prescription for PT/INR in SNF Ultrasound bilateral lower extremities to evaluate for DVT Problem Qualifiers (1) Rib fractures: Qualified Code: S22.41XD - Closed fracture of multiple ribs of right side with routine healing, subsequent encounter (2) Fall: Qualified Code: W19.XXXD - Fall, subsequent encounter (3) Clavicle fracture: Qualified Code: S42.001D - Closed nondisplaced fracture of right clavicle with routine healing, unspecified part of clavicle, subsequent encounter Rosario Zacarias August 15, 2016 11:40
[2016-08-15] MEDS ORDERED: WARFARIN SOD 4 MG TAB PO SCH (13:30)
[2016-08-15] MEDS ORDERED: METH500T3 PO (14:33)
[2016-08-15] MEDS ORDERED: LACT10SO PO (14:33)
[2016-08-15] MEDS ORDERED: FAMO20TA2 PO (14:33)
[2016-08-15 16:00] VITALS: BP 133/68; PULSE 68; RESP 17; TEMP 98.6; O2SAT 92
[2016-08-15 19:00] VITALS: BP 151/72; PULSE 73; RESP 18; TEMP 97.1; O2SAT 96
--- NOTE | 2016-08-15 20:21 | RADRPT ---
EXAM DATE/TIME: 08/15/2016 19:01 [facility] COMPARISON: No previous studies available for comparison. INDICATIONS : Bilateral leg swelling. MEDICAL HISTORY : Hypercholesterolemia. Arthritis. Osteoporosis. Multiple concussions. Migraines. GERD. HTN. UTI. Facto r V. Anticoagulant therapy, Coumadin. SURGICAL HISTORY : Tonsillectomy.Hysterectomy. Tubal ligation.Right punctured ear drum. Jaw wired. Fibroid removal. Pins right hip. ENCOUNTER: Initial ACUITY: 1 week PAIN SCORE: 6/10 LOCATION: Bilateral leg. TECHNIQUE: Venous ultrasound of the left and right leg was performed from the inguinal ligament to the proximal calf. Real-time, color Doppler and spectral tracing, compression and augmentation techniques were us ed. FINDINGS: RIGHT LEG: There is normal compressibility of the deep venous system from the inguinal region to the proximal ca lf. No echogenic clot is seen in the lumen of the common femoral, femoral, popliteal, and posterior tibial veins. There is a normal response of the venous system to proximal and distal augmentation an d respiration. LEFT LEG: There is normal compressibility of the deep venous system from the inguinal region to the proximal ca lf. No echogenic clot is seen in the lumen of the common femoral, femoral, popliteal, and posterior tibial veins. There is a normal response of the venous system to proximal and distal augmentation an d respiration. CONCLUSION: Normal examination. Leonides Vogt MD on August 15, 2016 at 20:19 Board Certified Radiologist. This report was verified electronically.
[2016-08-15] MEDS: ATORVASTATIN 40 MG TAB PO SCH (20:26)
[2016-08-15] MEDS: REMOVE OLD PATCH T-DERMAL SCH (20:27)
[2016-08-16] VITALS: BP 139/79; PULSE 74; RESP 16; TEMP 97.9; O2SAT 93
[2016-08-16] MEDS: ENOXAPARIN SODIUM 60 MG/0.6 ML SYRINGE SQ SCH (01:08)
[2016-08-16] MEDS: oxyCODONE/ACETAMINOPHEN 5 MG/325 MG TAB PO PRN ×2 (02:39→09:12)
[2016-08-16 04:00] VITALS: BP 150/74; PULSE 69; RESP 16; TEMP 97; O2SAT 93
[2016-08-16] MEDS: METHOCARBAMOL 500 MG TAB PO SCH (05:25)
[2016-08-16 07:22] LABS: PROTHROMBIN TIME - PATIENT 11.6 SEC (9.8-11.6)
[2016-08-16 08:45] VITALS: BP 159/82; PULSE 68; RESP 16; TEMP 97.8; O2SAT 92
[2016-08-16] MEDS ORDERED: WARFARIN SOD 4 MG TAB PO SCH (09:00)
[2016-08-16] MEDS: LACTULOSE SYRUP 20 GM/30 ML CUP PO SCH (09:07)
[2016-08-16] MEDS: DOCUSATE SODIUM 50 MG/SENNA 8.6 MG TAB PO SCH (09:08)
[2016-08-16] MEDS: LIDOCAINE HCL 5% PATCH T-DERMAL SCH (09:08)
[2016-08-16] MEDS: FAMOTIDINE 20 MG TAB PO SCH (09:09)
[2016-08-16] MEDS: CITALOPRAM HYDROBROMIDE 20 MG TAB PO SCH (09:09)
[2016-08-16] MEDS: amLODIPine BESYLATE 5 MG TAB PO SCH (09:09)
[2016-08-16] MEDS: SODIUM CHLORIDE 0.9% FLUSH 10 ML FLUSH IV FLUSH SCH (09:12)
[2016-08-16] MEDS ORDERED: ENOX60P SQ (11:07)
[2016-08-16] MEDS ORDERED: WARFARIN SOD 1 MG TAB PO ONE (11:15)
[2016-08-16 12:20] VITALS: BP 133/76; PULSE 66; RESP 20; TEMP 97.4; O2SAT 93
--- NOTE | 2016-08-16 12:59 | HHI.DS ---
Discharge Summary Admission Date August 11, 2016 at 22:51 Discharge Date: August 16, 2016 Admitting Diagnosis fall, rib fractures, hemopneumothorax, clavicle fracture (1) Hemopneumothorax Diagnosis: Principal (2) Rib fractures Diagnosis: Principal (3) Fall Diagnosis: Principal (4) Clavicle fracture Diagnosis: Principal (5) Anticoagulated on Coumadin Diagnosis: Principal (6) Factor V Leiden Diagnosis: Principal Brief History Fall. CBC/BMP: 08/15/16 0529 08/15/16 0529 Significant Findings Laboratory Tests Test 08/13/16 08/14/16 08/15/16 14:07 04:44 05:29 Red Blood Count 3.99 MIL/MM3 (4.00-5.30) Hematocrit 34.7 % (35.0-46.0) Platelet Count 134 TH/MM3 141 TH/MM3 (150-450) (150-450) Neutrophils (%) (Auto) 71.8 % 74.0 % (16.0-70.0) (16.0-70.0) Prothrombin Time 19.0 SEC (9.8-11.6) Potassium Level 3.2 MEQ/L 3.4 MEQ/L (3.5-5.1) (3.5-5.1) Creatinine 1.09 MG/DL (0.50-1.00) Estimat Glomerular Filtration 49 ML/MIN (>89) 82 ML/MIN (>89) 70 ML/MIN (>89) Rate Calcium Level 7.9 MG/DL (8.5-10.1) Total Protein 5.6 GM/DL 6.1 GM/DL (6.4-8.2) (6.4-8.2) Albumin 3.2 GM/DL 3.3 GM/DL (3.4-5.0) (3.4-5.0) Chloride Level 108 MEQ/L (98-107) Total Bilirubin 1.2 MG/DL 1.3 MG/DL (0.2-1.0) (0.2-1.0) Monocytes (%) (Auto) 8.5 % (0.0-8.0) Random Glucose 107 MG/DL (74-106) Imaging Last Impressions Lower Extremity Ultrasound 08/15/16 0600 Signed Impressions: Service Date/Time: Monday, August 15, 2016 19:01 - CONCLUSION: Normal examination. Leonides Vogt MD Chest X-Ray 08/15/16 0600 Signed Impressions: Service Date/Time: Monday, August 15, 2016 05:09 - CONCLUSION: 1. Right-sided rib fractures and right clavicular fracture. 2. No pneumothorax. 3. Bibasilar scarring. Natanael Garcia Jr., MD Elbow X-Ray 08/12/16 0000 Signed Impressions: Service Date/Time: Friday, August 12, 2016 09:37 - CONCLUSION: Unremarkable limited examination of the right elbow. Leonides Vogt MD Clavicle X-Ray 08/12/16 0000 Signed Impressions: Service Date/Time: Friday, August 12, 2016 09:31 - CONCLUSION: Rib fractures and right clavicle fracture. High riding humeral head. Leonides Vogt MD Chest CT 08/11/16 0000 Signed Impressions: Service Date/Time: Friday, August 12, 2016 04:53 - CONCLUSION: 1. Small hydropneumothorax on the right. 2. Right fifth and sixth rib fractures. Malick Calhoun MD Abdomen/Pelvis CT 08/11/16 0000 Signed Impressions: Service Date/Time: Friday, August 12, 2016 04:51 - CONCLUSION: 1. No abdominal visceral injury. 2. Small hydropneumothorax on the right. 3. Diverticulosis without diverticulitis. Malick Calhoun MD PE at Discharge GENERAL: This is a 70-year-old female sitting up in bed. No acute distress. Pleasant and cooperative. SKIN: Warm and dry. HEAD: Atraumatic. Normocephalic. EYES: PERRLA ENT: No nasal bleeding or discharge. Mucous membranes pink and moist. NECK: Trachea midline. No JVD. CARDIOVASCULAR: Regular rate and rhythm. RESPIRATORY: No accessory muscle use. Lungs are clear to auscultation. Breath sounds equal bilaterally. No distress or dyspnea. GASTROINTESTINAL: BS + x 4 quads. Abdomen soft, non-tender, nondistended. MUSCULOSKELETAL: Extremities without cyanosis, or edema. Right arm in sling. + peripheral pulses x 4 extremities. Warm with good capillary refill and sensation. MAEW. NEUROLOGICAL: Awake and alert. Normal speech and pattern. Hospital Course NAVAJO: This is a 70-year-old female who fell out of bed. She was transferred from [facility]. She is on Coumadin for factor V deficiency. PMHx: severe osteoarthritis right knee. Factor V deficiency INJURIES: Right clavicle fracture (non-op) RIGHT rib fractures (5,6) LEFT rib fx (1) Small hemopneumothorax Aspiration Consults: Orthopedics. The patient is now tolerating a po diet. Eating and drinking well. Pain is being managed well with PO pain medications, all current hospital medications will continue at the [facility]. Pt is having regular bowel movements, and have recommended to patient to continue with stool softeners while taking narcotic pain medications to prevent constipation. Pt has been participating in PT and OT while admitted at [facility] and has been ambulating with their assistance and independently . All follow up appointments have been provided and discussed with the patient. It is recommended that the patient keeps all his follow up appointments for continued recovery. Therefore, the patient is stable to be safely discharged home from a trauma surgery standpoint. Thank you for allowing us to participate in her care. We wish Lesly the best in her recovery. - Right clavicle fracture Non-operative management Orthopedics following the patient and assisting in management and care. Right arm sling NWB RUE Ortho cleared for discharge F/U in 7-10 days - Right rib fractures - Small hemopneumothorax -Aspiration Pulmonary toileting: IS, acapella Pain control - Percocet, Robaxin, Lidoderm patch CDB Increase activity Chest x-ray - Hemopneumothorax resolved - Factor V deficiency Lovenox 50 mg BID Coumadin 4 mg po daily INR equals 1.0 today - additional Coumadin 1 mg x 1 today PT and INR ordered to be drawn daily at [facility] (Prescription for PT/INR in SNF) SNF to Adjust Coumadin according to INR (Once INR 1.8 - then can DC Lovenox) Prescription for PT/INR in SNF Ultrasound bilateral lower extremities negative for DVT Pt Condition on Discharge: Stable Discharge Disposition: Discharge to SNF Discharge Instructions DIET: Follow Instructions for: As Tolerated, No Restrictions Activities you can perform: Non Weight Bearing Activities to Avoid: Concussion Sports, Contact Sports, Weight Bearing, Strenuous Activity Other Activity Instructions: Non weight bearing to RIGHT upper extremity Remarks seen and examined with TRAVEL AGENCY MANAGER-agree with assessment and plan doing well inr 1.0 -on lovenox 50 bid-factor 5 leiden disease will dc rehab Rosario Zacarias August 16, 2016 12:59 Lyssa Brooke MD August 16, 2016 13:23
[2016-09-12] MEDS ORDERED: BUSP5TAB PO (10:56)
[2016-09-12] MEDS ORDERED: ACET325C (10:56)
[2016-09-12] MEDS ORDERED: DIPH25CA PO (10:56)
[2016-09-12] MEDS ORDERED: NUTR1LIQ (10:56)
== END 2016-08-16 12:26 | DRG 200 ==
LOC: NEPE 22:38 → NEDA 22:51 → N03A 08-12 01:10 → N06B 08-12 13:53
PROVIDERS: ADMIT Surgery Trauma Surgery; ATTEND Surgery Trauma Surgery
DX: S27.0XXA Traumatic pneumothorax, initial encounter (principal); S22.41XA Multiple fractures of ribs, right side, initial encounter for closed fracture; S27.321A Contusion of lung, unilateral, initial encounter; D68.2 Hereditary deficiency of other clotting factors; M81.0 Age-related osteoporosis without current pathological fracture; M17.11 Unilateral primary osteoarthritis, right knee; Z79.01 Long term (current) use of anticoagulants; S42.021A Displaced fracture of shaft of right clavicle, initial encounter for closed fracture; W06.XXXA Fall from bed, initial encounter; Y92.003 Bedroom of unspecified non-institutional (private) residence as the place of occurrence of the external cause; K59.00 Constipation, unspecified
CPT/HCPCS: 71010; 71260; 73000; 73070; 74177; 80053; 83735; 85025; 85610; 93970; 94150; 94667; 94668; 99285; J0131; J1170; J1200; J1650; J2270; J7030; Q9967